=== PATIENT | male | born 1965 | race Caucasian/White ===

== ENCOUNTER → 2021-06-13 10:08 | Outpatient (BNVA) | payer OTHER, SELFPAY | PROVIDERS: Visit Provider Orthopaedic Surgery | DX: M54.50 Low back pain, unspecified (principal); M51.37 Other intervertebral disc degeneration, lumbosacral region | CPT/HCPCS: 72110 ==

== ENCOUNTER → 2021-07-10 13:36 | Outpatient (BNVA) | payer OTHER, SELFPAY | PROVIDERS: Visit Provider Orthopaedic Surgery | DX: Z01.818 Encounter for other preprocedural examination (principal); Z20.822 Contact with and (suspected) exposure to COVID-19; M48.062 Spinal stenosis, lumbar region with neurogenic claudication | CPT/HCPCS: 87635 ==

== ENCOUNTER → 2021-07-12 13:45 | Outpatient (BNVA) | payer OTHER, SELFPAY | PROVIDERS: Visit Provider Family Medicine | DX: E11.9 Type 2 diabetes mellitus without complications (principal); I10 Essential (primary) hypertension; Z13.220 Encounter for screening for lipoid disorders; Z13.6 Encounter for screening for cardiovascular disorders | CPT/HCPCS: 80061; 83036 ==

== ENCOUNTER 2021-07-19 11:37 | Inpatient (IN) | payer OTHER, SELFPAY ==
[2021-07-07 14:31] VITALS: BMI 33.2
[2021-07-12 08:41] VITALS: BMI 34.4
--- NOTE | 2021-07-12 08:49 | ANES.PREANE2 ---
Pre-Anesthetic Assessment Height/Weight: Height 1.83 m Weight 115.212 kg Operation Date: 07/14/21 09:20 Proposed Procedures p Posterior Lumbar Interbody Fusion L4/5 13342,L5/E076602/M48.062 spinal stenosis,lumbar(Not Applicable) - Gonzales Morrison DO Familial anesthetic complications: None Social No alcohol and No tobacco Exam alert, oriented x 3, clear to auscultation bilaterally and regular rate & rhythm Airway Mallampati: Class II Dentition: full CV/HEM Hypertension Metabolic Diabetes Mellitus Anesthetic Plan ASA status: 3 Anesthesia: General Risk of > 500 ml blood loss (7ml/kg in children): No Medications/Allergies Home Medications Medication Instructions Recorded Confirmed Last Taken Type gabapentin 300 mg capsule 300 mg PO TID 06/13/21 07/07/21 07/07/21 History lisinopril 20 1 tab PO DAILY 06/13/21 07/07/21 07/07/21 History mg-hydrochlorothiazide 12.5 mg tablet metformin 500 mg tablet 500 mg PO BID 06/13/21 07/07/21 07/07/21 History oxycodone-acetaminophen 10 mg-325 1 tab PO Q6H PRN 06/13/21 07/07/21 07/07/21 History mg tablet (Percocet) nabumetone 750 mg PO BID 07/07/21 07/07/21 07/07/21 History Allergies Allergy/AdvReac Type Severity Reaction Status Date / Time No Known Allergies Allergy Unverified 06/20/21 13:25 PFSH Anesthesia Medical History (Updated 06/20/21 @ 13:41 by Gonzales Morrison DO) Spinal stenosis, lumbar region with neurogenic claudication Social History Smoking and tobacco status: never smoked Data Anesthesia Cardiac Studies: No Data to Display
--- NOTE | 2021-07-12 08:53 | ECG_ITS ---
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 Measurements Intervals [place] Rate: 67 P: 28 MA: 166 QRS: 17 QRSD: 96 T: 25 QT: 377 QTc: 400 Interpretive Statements SINUS RHYTHM No previous ECG available for comparison Electronically Signed On 07-12-2021 18:30:48 CDT by Noelle Woodard M.D. [id number]
[2021-07-12 09:11] LABS: Basophils % 0.6 %; Eosinophils # 0.2 10^3/uL (0.0-0.8); Eosinophils % 3.2 %; Hematocrit 49.7 % (42.0-52.0); Hemoglobin 16.6 g/dL (11.7-16.6); Lymphocytes # 1.7 10^3/uL (0.8-4.8); Lymphocytes % 34.1 %; Mean Corpuscular HGB Conc 33.4 g/dL (30.0-36.0); Mean Corpuscular Hemoglobin 29.3 pg (28.0-34.0); Mean Corpuscular Volume 87.8 fl (80-94); Mean Platelet Volume 9.8 fL (7.4-10.4); Monocytes # 0.4 10^3/uL (0.2-0.9); Monocytes % 7.9 %; Neutrophils # 2.71 10^3/uL (1.8-7.7); Neutrophils % 53.4 %; Nucleated Red Blood Cells % 0 %; Platelet Count 185 10^3/cmm (130-400); Red Blood Count 5.66 10^6/uL (4.1-5.3); White Blood Count 5.1 10^3/uL (4.0-10.0)
[2021-07-12 09:39] LABS: Anion Gap 15.2 (5-19); Blood Urea Nitrogen 17 mg/dL (6-20); Calcium 9.4 mg/dL (8.5-10.5); Carbon Dioxide 24 mmol/L (22-29); Chloride 104 mmol/L (98-107); Glomerular Filtration Rate 77.9 mL/min (90-130); Glucose 165 mg/dL (65-115); Osmolality Calculated 293 mOsm/kg (285-295); Potassium 4.2 mmol/L (3.5-5.1); Sodium 139 mmol/L (136-145)
[2021-07-19] VITALS (26 sets, daily range): BP systolic 98–141; BP diastolic 56–99; PULSE 66–105; RESP 14–19; TEMP 36.3–36.8; O2SAT 91–98; BMI 35.9
--- NOTE | 2021-07-19 | XR_ITS ---
WS: [id number] Lumbar spine, C-arm fluoroscopy, 07/19/2021 Clinical Data: spinal stenosis Comparison: None. Findings: Dr. Morrison performed a posterior lumbar fusion L4-S1. XR/XR lumbar spine 2-3V* [id number] Impression: Posterior lumbar fusion.
--- NOTE | 2021-07-19 | SCC_ITS ---
Procedure done: 1. L5/S1 Interbody fusion with posterolateral fusion 2. Instrumentation L4-S1 instrumentation 3. posterior spine fusion from L4-S1 4. Cage at L5/S1 5. Laminectomy L5 with partial facetectomies to decompress nerves 6. Laminecomy L4 with partial facetectomies to decompress nerves 7. use of autograft from same incision 8. allograft 9. Bone marrow aspirate from right iliac crest 10. use of computer navigation/ stereotactic for spine 13 seconds of fluoroscopic guidance, for a cumulative dose of 60.6 mGy, was provided to Dr. Morrison by the radiology department. C-arm images of the lumbar spine were saved for the patient's permanent record. [facility]
[2021-07-19] MEDS: sodium chloride 0.9% 1,000 ML 30 ML IV (06:36)
[2021-07-19 06:38] LABS: Glucose Point of Care 127 mg/dL (70-110)
--- NOTE | 2021-07-19 06:56 | W.PM.OPSUD ---
Surgery/Procedure H&P Update DATE OF PROCEDURE: July 19, 2021 DATE H&P PERFORMED: 06/20/21 H&P UPDATE INFORMATION: I have reviewed H&P completed within last 30 days, I have examined patient prior to procedure and No changes to prior documentation PREOP DIAGNOSIS: Lumbar stenosis with Neurogenic Claudication PLANNED PROCEDURE: Operation Date: 07/19/21 07:00 Proposed Procedures p Posterior Lumbar Interbody Fusion L4/5 39494,L5/[id number]/M48.062 spinal stenosis,lumbar(Not Applicable) - Gonzales Morrison DO
--- NOTE | 2021-07-19 07:08 | P.ANESUD_ITS ---
Pre-Anesthetic Update Pre-Anesthetic Assessment: Date of Surgery/Procedure: 07/19/21 Preop Madonna gnosis: Lumbar stenosis with Neurogenic Claudication Proposed Procedure: Operation Date: 07/19/21 07:00 Proposed Procedures p Posterior Lumbar Interbody Fusion L4/5 64058,L5/Y190642/M48.062 spinal stenosis,lumbar(Not Applicable) - Gonzales Morrison, DO Any changes to Pre-Anesthetic Assessment?: No Last Intake: Intake Last Liquid Date 07/18/21 Last Liquid Time 18:00 Last Solid Date 07/18/21 Last Solid Time 18:00 Vitals: Temperature 97.7 F 07/19/21 06:09 Temperature Source Temporal Artery S can 07/19/21 06:09 Pulse Rate 72 07/19/21 06:09 Respiratory Rate 18 07/19/21 06:09 Blood Pressure 138/82 07/19/21 06:09 Blood Pressure Lavonne n 100 07/19/21 06:09 Pulse Oximetry 94 07/19/21 06:09 Oxygen Delivery Me thod 07/19/21 06:13 Exam: Pre-Anes Outpt Exam: alert, oriented x 3, clear to auscultation bilaterally and regular rate & rhythm Cardiac Studies: No Data to Display
--- NOTE | 2021-07-19 10:31 | PM.OP ---
Operative Report Date of procedure: July 19, 2021 Pre-op diagnosis: Preop Diagnosis Lumbar stenosis with Neurogenic Claudication Post-op diagnosis: same Procedure done: 1. L5/S1 Interbody fusion with posterolateral fusion 2. Instrumentation L4-S1 instrumentation 3. posterior spine fusion from L4-S1 4. Cage at L5/S1 5. Laminectomy L5 with partial facetectomies to decompress nerves 6. Laminecomy L4 with partial facetectomies to decompress nerves 7. use of autograft from same incision 8. allograft 9. Bone marrow aspirate from right iliac crest 10. use of computer navigation/ stereotactic for spine Surgeon: Gonzales Morrison Police Magistrate: Mateo Simon Estimated blood loss (mL): 200 Procedure: 1. L5/S1 Interbody fusion with posterolateral fusion 2. Instrumentation L4-S1 instrumentation 3. posterior spine fusion from L4-S1 4. Cage at L5/S1 5. Laminectomy L5 with partial facetectomies to decompress nerves 6. Laminecomy L4 with partial facetectomies to decompress nerves 7. use of autograft from same incision 8. allograft 9. Bone marrow aspirate from right iliac crest 10. use of computer navigation/ stereotactic for spine Patient is brought to the operative suite. After undergoing anesthesia, the patient had neuro monitoring attached. Patient was then placed in the prone position on the Jarod table. All areas of impingement were well-padded. Patient was then prepped and draped in the normal sterile fashion. Skin incision was then made over the L4 to S1 levels. Subperiosteal dissection was made out to the transverse processes of L4 and L5 and the ala of S1. Next attention was brought to the bone marrow aspirate. This was taken from the right iliac crest. The [employer] bone marrow aspirate kit was used to aspirate bone marrow aspirate. This was done by using the sharp probe to open up the bone. Aspiration was performed and then the blunt probe was then used to dissect down to through the bone tunnel. An aspirating well drawn back a millimeter approximately 20 cc of bone marrow aspirate was used. Admixed with the allograft and autograft bone that will be used. Attention was brought to placing the fiducial for the computer navigation. 2 K wire pins were placed into the right iliac crest. The pins were then removed at the end of the case. Once the pins were placed the fiducial was then attached. And the C-arm was brought in and spun around the patient. The information from the C-arm was loaded the computer and then this information was able to be used for computer navigating placing the pedicle screws. The technique for placing the pedicle screws was to use a drill followed by the gearshift probe linked to the computer navigation. Followed by the ball probe to feel the superior inferior medial lateral chaidez of the pedicles. Then placement of the screws linked to computer navigation Was done at each pedicle. Screws were placed at L L4 bilaterally and L L5 bilaterally and the sacral ala. Next attention was brought to performing the laminectomy ofL4. This was done using the high-speed bur Kerrisons and curettes. Once the lamina was removed and then attention was brought to performing a partial facetectomy on the contralateral side. This was done again using the high-speed bur curettes and Kerrisons. The ligamentum flavum was taken down bilaterally from L4 to L5. Attention was then brought to the facet on the ipsilateral side. The facet was taken down. The L5 nerve was decompressed as it passed around the L5 pedicle. The laminectomy was done for purposes of decompressing the nerve. Foramen were also opened up bilaterally. In order to ensure that the L4 nerve was decompressed as it passed out the foramen. Next attention was brought to performing the laminectomy ofL5. This was done using the high-speed bur Kerrisons and curettes. Once the lamina was removed and then attention was brought to performing a partial facetectomy on the contralateral side. This was done again using the high-speed bur curettes and Kerrisons. The ligamentum flavum was taken down bilaterally from L5 to S1. Attention was then brought to the facet on the ipsilateral side. The facet was taken down. The S1 nerve was decompressed as it passed around the S1 pedicle. The laminectomy was done for purposes of decompressing the nerve as well as placement of the cage. The L5 nerve was identified as it traversed through the L5 foramen. The thecal sac was identified and retracted. The L5/S1 disc base was identified. Using a knife the disc base was opened. And then sequential esthela were placed. The first shaver was a 6 and the last shaver was a 8. Using a pituitary and down going curette the endplates were scraped and disc material was removed from the space. Once adequate decompression of the disc base was felt to be had. Osteoamp sponge was packed into the anterior aspect of the disc base. Then a size 7 cage from [employer] was placed after packing osteoamp into the cage. While placing the cage the thecal sac and S1 nerve was protected. C arm was used to ensure that the cages placed in the appropriate position. Attention was then brought to attaching the rods to the screws placed in the L4 bilaterally, L5 bilaterally and S1 bilaterally. The caps were torqued into position. Locking the construct in place. Wound was copiously irrigated and then attention was brought to decorticating the facets and transverse processes laterally. Bone that was taken down from the lamina was used along with osteoamp fibers and sponges were packed into the lateral gutters along the facet joints. This was done bilaterally. Wound was then closed in a layered fashion starting with the thoracolumbar fascia. 0-vicryl was used the sub cutaneous tissue was closed with 2-0 vicryl and skin with 4-0 monocryl. Glue was then used to seal the skin and a steril dressing was applied. Patient was then placed in the supine position. The endotracheal tube was removed and patient was transferred to the PACU in stable condition.
[2021-07-19] MEDS: fentaNYL 50 mcg/mL INJ 2mL IVP ×2 (10:47→10:58)
[2021-07-19] MEDS: HYDROmorphone 1 mg/mL INJ 1 mL 0.5 MG IVP (11:04)
[2021-07-19] MEDS: ketorolac 30 mg/mL INJ IVP ×2 (12:16→20:46)
[2021-07-19] MEDS: oxyCODONE-APAP 10-325 mg Tablet 1 TAB PO ×2 (12:17→18:34)
[2021-07-19] MEDS: lactated ringers 1,000 ML 90 ML IV ×2 (12:17→20:46)
[2021-07-19] MEDS: gabapentin 300 mg Capsule PO ×2 (14:55→20:09)
[2021-07-19] MEDS: morphine 4 mg/mL SDV 1 mL 2 MG IVP (14:56)
--- NOTE | 2021-07-19 16:17 | ANE.PACU2 ---
Inpatient post-anesthesia follow up: Airway intact: Yes Vital signs: Temperature 98.2 F Pulse Rate 91 Respiratory Rate 14 Blood Pressure 123/72 Pulse Oximetry 95 Oxygen Delivery Me thod Nasal Cannula Oxygen Flow Rate 2 Fraction of Inspir ed Oxygen Hydration adequate: Yes Nausea and vomiting: No Pain level: 3 Mental status: Baseline
[2021-07-19] MEDS: docusate sodium 100 mg Capsule PO (18:34)
[2021-07-19] MEDS: metformin 500 mg Tablet PO (20:09)
[2021-07-20] VITALS (9 sets, daily range): BP systolic 103–124; BP diastolic 61–78; PULSE 74–89; RESP 16–19; TEMP 36.6–37.3; O2SAT 93–95
[2021-07-20] MEDS: oxyCODONE-APAP 10-325 mg Tablet 1 TAB PO ×4 (00:10→20:16)
[2021-07-20] MEDS: acetaminophen 325 mg Tablet 650 MG PO (00:11)
[2021-07-20] MEDS: ketorolac 30 mg/mL INJ IVP ×2 (03:35→17:38)
[2021-07-20] MEDS: ondansetron 2 mg/ML SDV 2 mL 4 MG IVP (03:35)
[2021-07-20] MEDS: enoxaparin 40 mg/0.4 mL Syringe SUBCUT (05:01)
--- NOTE | 2021-07-20 08:38 | P.PN_ITS ---
Subjective Subjective: POD 1 Patient alert orient x3 in mild acute distress with low back pain. States his leg pain is much improved. He was mobilizing around the room. Denies any headaches, chest pain, shortness of breath. Vitals/I&O/Wt Last Vital Signs Temp 98.2 F 07/20/21 07:20 Pulse 74 07/20/21 07:20 Resp 18 07/20/21 07:20 BP 124/78 07/20/21 07:20 Pulse Ox 95 07/20/21 07:20 07/19/21 07/20/21 07/20/21 22:59 06:59 14:59 Intake Total 1469.0 / 2069.0 1800 / 3869.0 Output Total 775 / 1475 1000 / 2475 Balance 694.0 / 594.0 800 / 1394.0 Weight last 48 hrs Weight 265 lb Weight 265 lb 4.8 oz Physical Exam Narrative: Patient presents alert and oriented x3 with a good general appearance normal mood and affect. Normal coordination normal stability. Mild tenderness around the incisional site with the incision appear to be clean and dry. No signs of erythema or drainage. No signs of infection. Patient denies any fevers or chills. 4/5 motor strength both lower extremities with negative straight leg raise bilaterally. Calves are supple no medial thigh tenderness. Pulses are 2+ at the dorsalis pedis and posterior tibial region. Good capillary refill throughout normal sensation light touch both lower extremities. Urinary Catheter Management: Chatman: Cath Placed During This Visit: yes, but has since been removed by the nurse Reason for Continuing Indwelling Catheter: Decision to DC Catheter Urinary Catheter Date of Insertion: 07/19/21 Urinary Catheter Time of Insertion: 07:15 Date Urinary Catheter Removed: 07/19/21 Time Urinary Catheter Discontinued: 18:38 Data : 07/12/21 09:00 07/12/21 09:00 A&P Assessment and plan (1) Status post lumbar spinal fusion: Encourage him to continue mobilizing with physical therapy. Discontinue Chatman catheter and Hemovac drain. We will work with laxative choice for bowel movemen t. He lives alone and therefore will hold his discharge till tomorrow. Status: Acute Attestations Medical Necessity Statement*: DC tomorrow Coding Level of Care Code Acute Liaison Inspection Laboratory Assistant for Chg Fwd Diagnoses Status post lumbar spinal fusion Z98.1
[2021-07-20] MEDS: lisinopril 20 mg Tablet PO (08:49)
[2021-07-20] MEDS: docusate sodium 100 mg Capsule PO ×2 (08:49→17:39)
[2021-07-20] MEDS: gabapentin 300 mg Capsule PO ×3 (08:49→20:11)
[2021-07-20] MEDS: metformin 500 mg Tablet PO ×2 (08:50→20:11)
--- NOTE | 2021-07-20 10:49 | PC.CHAP ---
Pastoral Care Encounter/Spiritual Assessment Type of Contact [] Declined gun perforator visit [] Patient/Family/Request visit [] Outpatient visit [] Follow-up visit [] Physician referral [] Code/Alert [x] Routine visit [] Staff referral [] Actively dying [] Patient sleeping [] Family support [] [] Out of room [] Palliative care [] [x] Receiving care in room [] Pre-surgical visit [] Trauma [] Long length of stay [] ICU visit [] Other: Relational/Emotional Strength [x] Patient feels connected with others/family/visitors/staff [] Distress [] Loneliness/isolation [] Abandonment Spirituality of Patient [x] Person of Yolanda [] Attends Tenriism of their Yolanda [x] Believes in Prayer [] Reads Bible or Mu-Ism materials [] There are Spiritual issues to be addressed [employer] Interventions [x] Prayer [x] Active listening [x] Non-anxious presence [x] Spiritual/emotional support [] Crisis/trauma care [x] Spiritual counseling [] Bereavement support [] Provided bereavement packet [] Provided Bible/devotional materials [] Provided toy/stuffed animal, coloring book to patient or family member [] Provided Communion [] Anointing/[place] [] Salvation [x] Completed spiritual assessment [] Other: Impact on Illness or Injury [] Angry [] Fearful [x] Anxious [] Often cries [] Exhaustion [] Unable to work [] Unable to attend confucianism [] Unable to walk/stand [] Unable to read [] Unable to drive [] Unable to eat/drink [] Unable to sleep [] Unable to be with family [] Patient intubated [] Other: Summary had surgery in some pain will be going home has a good attitude Time spent with patient 10 mins
[2021-07-20] MEDS: lactated ringers 1,000 ML 90 ML IV (13:06)
[2021-07-20 13:57] LABS: Glucose Point of Care 179 mg/dL (70-110)
[2021-07-20 21:11] LABS: Glucose Point of Care 137 mg/dL (70-110)
[2021-07-21] VITALS: BP 95/60; PULSE 75; RESP 19; TEMP 37; O2SAT 91
[2021-07-21] MEDS: lactated ringers 1,000 ML 90 ML IV (00:33)
[2021-07-21 03:51] VITALS: RESP 16
[2021-07-21] MEDS: oxyCODONE-APAP 10-325 mg Tablet 1 TAB PO (03:51)
[2021-07-21 04:00] VITALS: BP 102/65; PULSE 77; RESP 17; TEMP 37.1; O2SAT 91
[2021-07-21] MEDS: enoxaparin 40 mg/0.4 mL Syringe SUBCUT (05:11)
[2021-07-21 06:56] LABS: Glucose Point of Care 126 mg/dL (70-110)
[2021-07-21 07:25] VITALS: BP 110/64; PULSE 81; RESP 16; TEMP 36.7; O2SAT 97
[2021-07-21] MEDS: metformin 500 mg Tablet PO (08:05)
[2021-07-21] MEDS: docusate sodium 100 mg Capsule PO (08:05)
[2021-07-21] MEDS: acetaminophen 325 mg Tablet 650 MG PO (08:05)
[2021-07-21] MEDS: gabapentin 300 mg Capsule PO (08:06)
--- NOTE | 2021-07-21 08:30 | P.PN_ITS ---
Subjective Subjective: POD 2 Patient resting comfortably. Reports mild back pain leg pain much better. Denies any headaches, shortness of breath, chest pain. Vitals/I&O/Wt Last Vital Signs Temp 98.0 F 07/21/21 07:25 Pulse 81 07/21/21 07:25 Resp 16 07/21/21 07:25 BP 110/64 07/21/21 07:25 Pulse Ox 97 07/21/21 07:25 07/20/21 07/21/21 07/21/21 22:59 06:59 14:59 Intake Total 520 / 1820 2320 / 4140 Output Total 300 / 800 400 / 1200 Balance 220 / 1020 1920 / 2940 Weight last 48 hrs Weight 268 lb 6.4 oz Weight 265 lb Weight 265 lb 4.8 oz Physical Exam Narrative: Patient presents alert and oriented x3 with a good general appearance normal mood and affect.? Normal coordination normal stability.? Mild tenderness around the incisional site with the incision appear to be clean and dry.? No signs of erythema or drainage.? No signs of infection.? Patient denies any fevers or chills.? 4/5 motor strength both lower extremities with negative straight leg raise bilaterally.? Calves are supple no medial thigh tenderness.? Pulses are 2+ at the dorsalis pedis and posterior tibial region.? Good capillary refill throughout normal sensation light touch both lower extremities. Urinary Catheter Management: Chatman: Cath Placed During This Visit: yes, but has since been removed by the nurse Reason for Continuing Indwelling Catheter: Decision to DC Catheter Urinary Catheter Date of Insertion: 07/19/21 Urinary Catheter Time of Insertion: 07:15 Date Urinary Catheter Removed: 07/19/21 Time Urinary Catheter Discontinued: 18:38 Data : 07/12/21 09:00 07/12/21 09:00 A&P Assessment and plan (1) Status post lumbar spinal fusion: We will discontinue Chatman catheter Hemovac drain. Physical therapy to mobilize. Discharge home today. Continue incentive spirometry for pulmonary toilet at home. I will see him back in the office in 1 week's time for wound check. Status: Acute Attestations Medical Necessity Statement*: dc home Coding Level of Care Code Acute Supervisor Evaporator for Gino Arroyo Diagnoses Status post lumbar spinal fusion Z98.1
--- NOTE | 2021-07-21 10:42 | PC.NURSE ---
patient verbalized understanding of discharge instructions, home medications, and follow up. Multiple attempts were made to make a follow up appointment, however, there was no answer at the office. patient verbalized that he will call to make a follow up appointment.
[2021-07-21 10:46] VITALS: BP 110/64; PULSE 81; RESP 16; TEMP 36.7; O2SAT 97
--- NOTE | 2021-07-24 13:48 | P.DS_ITS ---
Discharge Providers Date of Admission: 07/19/21 11:37 Date of Discharge: July 21, 2021 Attending Provider at Admission: Gonzales Max DO Attending Provider at Discharge: Gonzales Max DO Diagnoses at Discharge Discharge Diagnosis (1) Status post lumbar spinal fusion: Status: Acute Reason for Visit Reason for Visit: M48.062 spinal stenosis,lumbar reg Hospital Course Hospital Course uneventful Physical Exam Urinary Catheter Management: Chatman: Cath Placed During This Visit: yes, but has since been removed by the nurse Reason for Continuing Indwelling Catheter: Decision to DC Catheter Urinary Catheter Date of Insertion: 07/19/21 Urinary Catheter Time of Insertion: 07:15 Date Urinary Catheter Removed: 07/19/21 Time Urinary Catheter Discontinued: 18:38 Discharge Data Studies Completed and Pending Completed Studies During Hospitalization Category Date Time Status XR lumbar spine 2-3V* [id number] Routine Exams 07/19/21 Completed Radiology Impressions Lumbar Spine X-Ray 07/19/21 00:00 Impression: Posterior lumbar fusion. Laboratory Results WBC 5.1 10^3/uL (4.0-10.0) 07/12/21 09:00 RBC 5.66 10^6/uL (4.1-5.3) H 07/12/21 09:00 Hgb 16.6 g/dL (11.7-16.6) 07/12/21 09:00 Hct 49.7 % (42.0-52.0) 07/12/21 09:00 MCV 87.8 fl (80-94) 07/12/21 09:00 MCH 29.3 pg (28.0-34.0) 07/12/21 09:00 MCHC 33.4 g/dL (30.0-36.0) 07/12/21 09:00 RDW 12.0 % (12.1-15.1) L 07/12/21 09:00 Plt Count 185 10^3/cmm (130-400) 07/12/21 09:00 MPV 9.8 fL (7.4-10.4) 07/12/21 09:00 Neut % (Auto) 53.4 % 07/12/21 09:00 Lymph % (Auto) 34.1 % 07/12/21 09:00 [place] % (Auto) 7.9 % 07/12/21 09:00 Eos % (Auto) 3.2 % 07/12/21 09:00 Baso % (Auto) 0.6 % 07/12/21 09:00 Neut # (Auto) 2.71 10^3/uL (1.8-7.7) 07/12/21 09:00 Lymph # (Auto) 1.7 10^3/uL (0.8-4.8) 07/12/21 09:00 [place] # (Auto) 0.4 10^3/uL (0.2-0.9) 07/12/21 09:00 Eos # (Auto) 0.2 10^3/uL (0.0-0.8) 07/12/21 09:00 Baso # (Auto) 0.0 10^3/uL (0.0-0.1) 07/12/21 09:00 Nucleated RBC % (auto) 0 % 07/12/21 09:00 Nucleated RBCs # 0.0 /100WBC 07/12/21 09:00 Sodium 139 mmol/L (136-145) 07/12/21 09:00 Potassium 4.2 mmol/L (3.5-5.1) 07/12/21 09:00 Chloride 104 mmol/L (98-107) 07/12/21 09:00 Carbon Dioxide 24 mmol/L (22-29) 07/12/21 09:00 Anion Gap 15.2 (5-19) 07/12/21 09:00 BUN 17 mg/dL (6-20) 07/12/21 09:00 Creatinine 1.0 mg/dL (0.7-1.2) 07/12/21 09:00 GFR Calculation 77.9 mL/min (90-130) L 07/12/21 09:00 Glucose 165 mg/dL (65-115) H 07/12/21 09:00 POC Glucose 126 mg/dL (70-110) H 07/21/21 06:10 Calculated Osmolality 293 mOsm/kg (285-295) 07/12/21 09:00 Calcium 9.4 mg/dL (8.5-10.5) 07/12/21 09:00 Vitals Last Vital Signs Temp 98.0 F 07/21/21 10:46 Pulse 81 07/21/21 10:46 Resp 16 04/15/22 10:46 BP 110/64 07/21/21 10:46 Pulse Ox 97 07/21/21 10:46 Discharge Plan Discharge Patient Disposition: Home Condition: Stable Prescriptions: New Percocet 10-325 mg tablet 1 - 2 tab PO Q4H PRN (Reason: pain) 7 Days Qty: 42 0RF Continued metformin 500 mg tablet 500 mg PO BID 0RF gabapentin 300 mg capsule 300 mg PO TID 0RF oxycodone-acetaminophen [Percocet] 10-325 mg tablet 1 tab PO Q6H PRN (Reason: Pain, Mild) 0RF lisinopril-hydrochlorothiazide 20-12.5 mg tablet 1 tab PO DAILY 0RF (DME) Bone growth stimulator E0748 See Rx Instructions .Route .MEDSUPPLY Qty: 1 0RF Rx Instructions: As directed nabumetone 750 mg PO BID 0RF Discharge Orders: Discharge Order (Routine); Ordered 07/21/21 Ordered By: oGnzales Max Other Ambulatory Orders: DME: Walker (Order) Location: None Selected Ordered By: Gonzales Max Referrals: Gonzales Max, DO [Physician] - 1 week (PLEASE CALL DR. MAX'S OFFICE, , TO SET UP A FOLLOW-UP APPOINTMENT TO SEE DR. MAX IN ONE WEEK. ) Discharge Diet: Advance as tolerated Discharge Activity: Limit activity as instructed Patient Instructions: Oxycodone/Acetaminophen (By mouth), Lumbar Spinal Fusion (DC), Opioid Safety Activity Restrictions/Additional Instructions: Thank you for [facility] for your care! The following is a list of instructions, from your provider, to follow upon your discharge to ensure you have the optimal recovery from your recent injury orsurgery. Follow-up care is a berry part of your treatment and safety. Be sure to make and go to all appointments, and call your doctor if you are having problems. If you do not already have a follow-up appointment made, call Dr. Max office in the next 1-3 days to make follow up appointment for 1 weeks at [phone]. It is also a good idea to know your test results and keep a list of the medicines you take. Medications will be prescribed for you at your provider's discretion. These medications are to be used as instructed; if they are taken more often that prescribed they will not be refilled early and in most cases will not be refilled at all. > When a refill is needed,you should contact jose miguel kay 2-3 business days before your prescription runs out. Medications will NOT be refilled by medical transcription radiology providers after hours! > Many pain medications contain Tylenol (Acetaminophen). Do not consume more than 4,000 mg of Tylenol per day in total with any combination ofmedications. > Pain medications can cause constipation. Please use an over the counter stool softener as directed, while taking pain medications. Consulty our local pharmacist with questions or recommendations on stool softeners. If constipation persists, contact our office or your primary care provider. > While under our care,you are not to receive pain medications or other controlled substances from any other provider unless our office is notified and approves. Any attempts to do so will result in refusal to prescribe any further pain medications and possible dismissal from our practice. ? Keep dressing on we will change in the clinic. Any issues call the clinic ? Showering is permitted, however we ask that you do not take a bath, sit in a whirlpool / Jacuzzi, or go swimming for 1 month. For only the first 2 days after surgery, lt wilt be necessary for you to cover your wound/dressing with plastic and tape to keep it dry. ? Walking is essential for the healing process after surgery. We would like you to slowly advance your walking. This should be done on relatively flat clear ground (inside or out) or can be done on a treadmill. Remember this goal does not have to happen all at once, slowly increase your distance and duration. This can be broken into more more than one walk per day as tolerated. Patients who walk as directed after surgery rarely require Physical Therapy. In the unlikely event this issue arises your provider will direct hospital staff to make the appropriate arrangements. ? No lifting over 5 pounds {a gallon of milk) or bending/twisting until further notice. Each of these activities places an unnecessary amount of stress onto the body and can impede the delicate healing process. > Instead of bending at the waist, keep your back straight and bend at the knees. > Instead of twisting your torso, keep your back straight and turn your entire body with your feet. ? You may sleep in any position which makes you comfortable. Many patients find comfort sleeping in a reclining chair. It is not abnormal to have difficulty sleeping for the first several weeks following your surgery. We recommend trying Benadry! or Tylenol PM as directed to help with your sleeping difficulties. Both medications are over the counter and available withoutpresc ription. ? NO SMOKING!!! Smoking dramatically increases the probability of developing postoperative wound infections. ? Common complaints after lumbar and/or thoracic spine surgery include, but are not limited to: numbness and/or tingling in the legs, pain around the incision and surrounding tissues, muscle spasms, or stiffness of the middle to low back. Contact our office if these symptoms persist or if an acute change occurs. ? No driving for the first 3-5days, and not while taking narcotics [] until seen at your follow-up appointment and cleared. There are no restrictions for riding on short trips, however if you take a longer trip, arrangements should be made to make regular stops to get out of the vehicle and stretch . ? Swelling is an unfortunate event that will take place with any surgery and is the primary source of your postoperative discomfort. While walking and regular approved activities helps control inflammation, there are additional steps you can take to minimizeswelling. > Place ice over the surgical site and surrounding tissue for twenty minutes, followed by applying a low/medium heat (heating pad) for an additional twenty minutes every 1-2 hours as needed for painrelief. > You may use of over the counter anti-inflammatory medications (Ibuprofen, Motrin, Aleve, Advil, etc) as directed on the package label. These types of medicines wm significantly reduce the amount of discomfort you experience after surgery from swelling. It should be noted that if you have and allergy to any of these medications, or a history of ulcers or kidney disease you should consult you primary care provider prior to starting these medications. Discharge Attestations Time Spent in Discharge Care*: less than 30 min Quality Metrics Clinical Quality Measures [ No reported AMI, CVA or VTE this stay] Coding Level of Care Code Acute g [facility] note Diagnoses Status post lumbar spinal fusion Z98.1
--- NOTE | 2021-07-24 13:51 | P.HP_ITS ---
Providers/Chief Complaint Admitting Physician: Gonzales Morrison DO Chief Complaint: M48.062 spinal stenosis,lumbar reg History of Present Illness James Park is a 56 year old male valuation of back pain after an injury at work April. When he slipped on ice and fell. He descirbes having back and leg pain with the leg pain being worse. He has tried physical therapy and injections.He states that he was unable to have surgery in while he was living in [place] due to not having anyone to help him after surgery. He recently moved to the area so that his son could care for him after surgery. Review of Systems General: Reports: 10 or more systems reviewed and unremarkable except in HPI and below Const: Reports: other (Denies recent illness. ); Denies: fever(s) or chills Eyes: Denies: change in vision or eye discharge ENMT: Denies: throat pain or oral sores Card: Denies: chest pain or palpitations Resp: Denies: dyspnea, productive cough, non-productive cough or wheezing GI: Denies: abdominal pain, nausea, vomiting, diarrhea or constipation : Denies: dysuria or urinary frequency Musc: Denies: joint pain or joint swelling Skin/Breast: Denies: rash or sores Neuro: Denies: headache(s), weakness in extremities or sensory changes Psych: Denies: anxiety or depression Endo: Denies: polyuria or polydipsia Khris/Lymph: Denies: easy bruising Medications/Allergies Home Medications Medication Instructions Recorded Confirmed Last Taken Type gabapentin 300 mg capsule 300 mg PO TID 06/13/21 07/19/21 07/18/21 12:00 History lisinopril 20 1 tab PO DAILY 06/13/21 07/19/21 07/18/21 07:00 History mg-hydrochlorothiazide 12.5 mg tablet metformin 500 mg tablet 500 mg PO BID 06/13/21 07/19/21 07/18/21 08:00 History oxycodone-acetaminophen 10 mg-325 1 tab PO Q6H PRN 06/13/21 07/19/21 07/15/21 History mg tablet (Percocet) nabumetone 750 mg PO BID 07/07/21 07/19/21 07/18/21 07:00 History Bone growth stimulator E0748 #1 ea 07/18/21 Unknown Rx oxycodone-acetaminophen 10 mg-325 1 - 2 tab PO Q4H PRN 7 Days #42 tab 07/21/21 Unknown Rx mg tablet (Percocet) Allergies Allergy/AdvReac Type Severity Reaction Status Date / Time No Known Allergies Allergy Verified 07/19/21 06:07 PFSH Acute PFSH: Medical History Spinal stenosis, lumbar region with neurogenic claudication Umbilical hernia without obstruction or gangrene Family History Grandfather Cancer Stroke Grandmother Diabetes Stroke Other Hyperlipidemia Hypertension Denies family history of CAD (coronary artery disease) Clotting disorder Dementia Psychiatric illness Chronic kidney disease (CKD) Suicide Anesthesia complication Bleeding disorder Lung disease Social History Smoking and tobacco status: former smoker Alcohol intake: never Adopted: No Caregiver/support person: No Lives independently: Yes Household members: none Housing: Other Details: [facility] Marital status: Single Number of children: 1 Highest education level completed: Some College, No Degree Vitals/I&O/Wt Last Vital Signs Temp 98.0 F 07/21/21 10:46 Pulse 81 07/21/21 10:46 Resp 16 07/21/21 10:46 BP 110/64 07/21/21 10:46 Pulse Ox 97 07/21/21 10:46 Physical Exam Narrative: CONSTITUTIONAL: The patient is a normal appearing [] in no apparent distress. GENERAL: Patient in no acute distress. CARDIAC: Regular rate and rhythm. CHEST: Normal inspiratory effort, normal respiratory rate. ABDOMEN: Soft and nontender. SKIN: Clear, warm and intact. NEURO?PSYCH: The patient is alert and oriented to person, place and time. Sensorv /SILT Motor StrengthShoulder abduction C5 5/5Wrist extension C6 5/5Elbow extension C7 5/5Hand Prosthetics Lab Technician C8 5/5Finger abduction T15/5 Radial/ Ulnar/ Median n intact LowerSensory (SILT)Motor StrengthHin flexion L2/3Ant/inner thigh 5/5Hip adduction L2/3 5/5Knee extension L4 Lat thigh, 5/5Toe dorsiflexion L5 5/5Ankle dorsiflexion L5/ [id number] flexion S1 5/5 DTRBleeps 2+Triceps 2+Brachioradialis 2+Patellar 2+Achilles 2+ MUSCULOSKELETAL: [] UPPEREXTREMITIES: The patient had full active ROM in fingers, wrist, elbow, and shoulder. The patient demonstrated ability to fully flex/extend/abduct/adduct fingers, make ok sign, cross 2nd/3rd digits, extend 1st digit fully.. Radial pulse 2+, CR<2 seconds. LOWER EXTREMITIES: Pt has full, active ROM of toes, ankle, knee, and hip. Dorsalis pedis/posterior tibialis pulses 2+, CR<2 seconds. SPINE: Skin warm, dry, intact. Urinary Catheter Management: Chatman: Cath Placed During This Visit: yes, but has since been removed by the nurse Reason for Continuing Indwelling Catheter: Decision to DC Catheter Urinary Catheter Date of Insertion: 07/19/21 Urinary Catheter Time of Insertion: 07:15 Date Urinary Catheter Removed: 07/19/21 Time Urinary Catheter Discontinued: 18:38 Data : 07/12/21 09:00 07/12/21 09:00 Attestations Medical Necessity Statement*: failed conervative tx Coding Level of Care Code Acute Package Dye Stand Loader for Gino Arroyo
== END 2021-07-21 10:47 | disposition home or self-care (01) | DRG 455 ==
LOC: MEDSURG 16:42
PROVIDERS: Anesthesiology; Admitting Provider Orthopaedic Surgery; Visit Provider Orthopaedic Surgery
PROC: 0SG30AJ Fusion of Lumbosacral Joint with Interbody Fusion Device, Posterior Approach, Anterior Column, Open Approach (ICD-10-PCS; CPT 22612; principal; 2021-07-19 07:00)
DX: M48.062 Spinal stenosis, lumbar region with neurogenic claudication (principal); Z87.891 Personal history of nicotine dependence; E11.9 Type 2 diabetes mellitus without complications; Z79.84 Long term (current) use of oral hypoglycemic drugs; Z79.891 Long term (current) use of opiate analgesic
CPT/HCPCS: 36415; 36416; 51702; 72100; 76000; 80048; 82962; 85025; 93005; 96372; 97116; 97161; 97530; C1713; C9359; J0330; J0690; J1100; J1170; J1650; J1885; J2250; J2270; J2370; J2405; J2704; J2710; J3010; J3490; J7030; P9041

== ENCOUNTER → 2021-08-31 09:30 | Outpatient (BNVA) | payer OTHER, SELFPAY | PROVIDERS: Visit Provider Orthopaedic Surgery | DX: Z98.1 Arthrodesis status (principal); M47.896 Other spondylosis, lumbar region | CPT/HCPCS: 72100 ==

== ENCOUNTER → 2021-09-28 09:50 | Outpatient (BNVA) | payer OTHER, SELFPAY | PROVIDERS: Visit Provider Orthopaedic Surgery | DX: Z98.1 Arthrodesis status (principal); Z48.89 Encounter for other specified surgical aftercare | CPT/HCPCS: 72100 ==

== ENCOUNTER → 2021-10-17 09:09 | Outpatient (BNVA) | payer OTHER, SELFPAY | PROVIDERS: PCP Family Medicine; Visit Provider Orthopaedic Surgery | DX: Z48.89 Encounter for other specified surgical aftercare (principal) | CPT/HCPCS: 72100 ==

== ENCOUNTER 2021-11-01 06:00 | Outpatient (RCR) | payer OTHER, SELFPAY | END 2021-11-05 23:55 | disposition home or self-care (01) | LOC: SPT 06:00 | PROVIDERS: PCP Family Medicine; Referring Provider Orthopaedic Surgery; Visit Provider Orthopaedic Surgery | DX: Z47.89 Encounter for other orthopedic aftercare (principal); Z98.1 Arthrodesis status | CPT/HCPCS: 97110; 97161 ==

== ENCOUNTER 2021-11-06 06:00 | Outpatient (RCR) | payer OTHER, SELFPAY | END 2021-12-06 23:59 | disposition home or self-care (01) | LOC: SPT 06:00 | PROVIDERS: PCP Family Medicine; Referring Provider Orthopaedic Surgery; Visit Provider Orthopaedic Surgery | DX: Z98.1 Arthrodesis status (principal) | CPT/HCPCS: 97110 ==

== ENCOUNTER 2021-12-07 06:00 | Outpatient (RCR) | payer OTHER, SELFPAY | END 2022-01-05 23:59 | disposition home or self-care (01) | LOC: SPT 06:00 | PROVIDERS: PCP Family Medicine; Visit Provider Orthopaedic Surgery | DX: Z98.1 Arthrodesis status (principal) | CPT/HCPCS: 97110 ==

== ENCOUNTER 2022-01-06 06:00 | Outpatient (RCR) | payer OTHER, SELFPAY | END 2022-01-18 15:55 | disposition home or self-care (01) | LOC: SPT 06:00 | PROVIDERS: PCP Family Medicine; Visit Provider Orthopaedic Surgery | DX: M43.26 Fusion of spine, lumbar region (principal) | CPT/HCPCS: 97110 ==

== ENCOUNTER → 2022-01-09 11:38 | Outpatient (BNVA) | payer OTHER, SELFPAY | PROVIDERS: PCP Family Medicine; Visit Provider Orthopaedic Surgery | DX: Z48.89 Encounter for other specified surgical aftercare (principal); Z98.1 Arthrodesis status | CPT/HCPCS: 72100 ==

== ENCOUNTER → 2022-01-10 09:51 | Outpatient (BNVA) | payer OTHER, SELFPAY | PROVIDERS: PCP Family Medicine; Visit Provider Family Medicine | DX: E11.9 Type 2 diabetes mellitus without complications (principal); E78.2 Mixed hyperlipidemia; I10 Essential (primary) hypertension; M10.9 Gout, unspecified | CPT/HCPCS: 80048; 80061; 83036 ==

== ENCOUNTER → 2022-09-12 11:53 | Outpatient (BNVA) | payer OTHER, SELFPAY | PROVIDERS: PCP Family Medicine; Visit Provider Family Medicine | DX: E78.2 Mixed hyperlipidemia (principal); I10 Essential (primary) hypertension; E11.9 Type 2 diabetes mellitus without complications; M48.062 Spinal stenosis, lumbar region with neurogenic claudication; Z98.1 Arthrodesis status | CPT/HCPCS: 80053; 80061; 83036; 85025; G0103 ==

== ENCOUNTER → 2023-06-19 09:31 | Outpatient (BNVA) | payer MEDICARE, OTHER, SELFPAY | PROVIDERS: PCP Family Medicine; Visit Provider Family Medicine | DX: E11.9 Type 2 diabetes mellitus without complications (principal); Z12.5 Encounter for screening for malignant neoplasm of prostate; I10 Essential (primary) hypertension; E78.2 Mixed hyperlipidemia | CPT/HCPCS: 80053; 80061; 83036; 84443; 85027; G0103 ==

== ENCOUNTER → 2023-12-24 11:00 | Outpatient (BNVA) | payer OTHER, MEDICARE, MEDICAID, SELFPAY | PROVIDERS: PCP Family Medicine; Visit Provider Family Medicine | DX: R79.89 Other specified abnormal findings of blood chemistry; E11.9 Type 2 diabetes mellitus without complications; E78.2 Mixed hyperlipidemia; M10.9 Gout, unspecified; I10 Essential (primary) hypertension; E55.9 Vitamin D deficiency, unspecified | CPT/HCPCS: 80053; 82043; 82306; 82607; 83036; 83735; 84550; 85025 ==

== ENCOUNTER → 2024-03-24 09:00 | Outpatient (BNVA) | payer MEDICARE, OTHER, MEDICAID, SELFPAY | PROVIDERS: PCP Family Medicine; Visit Provider Family Medicine | DX: E11.9 Type 2 diabetes mellitus without complications (principal); M10.9 Gout, unspecified; E78.2 Mixed hyperlipidemia; I10 Essential (primary) hypertension | CPT/HCPCS: 80053; 80061; 83036; 84550 ==

== ENCOUNTER → 2024-09-22 08:00 | Outpatient (BNVA) | payer MEDICARE, OTHER, MEDICAID, SELFPAY | PROVIDERS: PCP Family Medicine; Visit Provider Family Medicine | DX: I10 Essential (primary) hypertension (principal); E66.9 Obesity, unspecified; E78.2 Mixed hyperlipidemia; E11.9 Type 2 diabetes mellitus without complications; N52.1 Erectile dysfunction due to diseases classified elsewhere; R79.89 Other specified abnormal findings of blood chemistry; Z12.5 Encounter for screening for malignant neoplasm of prostate; M10.9 Gout, unspecified | CPT/HCPCS: 80053; 80061; 82043; 82607; 83036; 84443; 84550; G0103 ==

== ENCOUNTER → 2025-03-23 09:00 | Outpatient (BNVA) | payer MEDICARE, MEDICAID, SELFPAY | PROVIDERS: PCP Family Medicine; Visit Provider Family Medicine | DX: R79.89 Other specified abnormal findings of blood chemistry (principal); I10 Essential (primary) hypertension; M1A.09X0 Idiopathic chronic gout, multiple sites, without tophus (tophi); E78.2 Mixed hyperlipidemia; E11.65 Type 2 diabetes mellitus with hyperglycemia | CPT/HCPCS: 80053; 80061; 82043; 82306; 82607; 84443; 85025 ==